=== PATIENT | female | born 1970 | race Caucasian/White ===

== ENCOUNTER 2023-01-24 09:00 | Outpatient (OUT) | payer MEDICARE, SELFPAY ==
[2023-01-24 10:35] LABS: Anion Gap 8.1; BUN Creatinine Ratio 22.9; Calcium 9.1 mg/dL (8.5-10.1); Carbon Dioxide 29.8 mmol/L (21.0-32.0); Chloride 105 mmol/L (98-107); Estimated GFR (African America >60 (>=60); Estimated GFR (Non-African Ame >60 (>=60); Glucose 145 mg/dL (74-106); Potassium 3.9 mmol/L (3.5-5.1); Sodium 139 mmol/L (136-145)
== END 2023-01-24 09:01 | disposition home or self-care (01) ==
LOC: PST 09:08
PROVIDERS: Visit Provider Obstetrics & Gynecology
DX: Z01.812 Encounter for preprocedural laboratory examination (principal); N95.0 Postmenopausal bleeding; R10.2 Pelvic and perineal pain; R93.89 Abnormal findings on diagnostic imaging of other specified body structures
CPT/HCPCS: 36415; 80048

== ENCOUNTER 2023-02-02 07:02 | Day surgery (SDC) | payer MEDICARE, SELFPAY ==
[2023-01-24 11:48] VITALS: BP 115/65; PULSE 50; RESP 16; TEMP 36.3; O2SAT 93; BMI 46.2
[2023-02-02] VITALS (11 sets, daily range): BP systolic 118–152; BP diastolic 72–92; PULSE 53–67; RESP 14–24; TEMP 36.1–36.7; O2SAT 92–96; BMI 46.7
[2023-02-02 07:27] LABS: Basophils Absolute Auto 0.1 10^3/uL (0.0-0.1); Basophils Percent Auto 1.1 % (0.2-2.0); Eosinophils Absolute Auto 0.3 10^3/uL (0.0-0.7); Eosinophils Percent Auto 2.9 % (0.9-7.0); Immature Granulocytes Abs Auto 0.03 10^3/uL (0.00-0.03); Immature Granulocytes Pct Auto 0.3 % (0.0-0.5); Lymphocytes Absolute Auto 3.3 10^3/uL (1.2-3.8); Lymphocytes Percent Auto 36.3 % (20.5-60.0); Mean Corpuscular HGB Conc 34.1 g/dL (29.9-35.2); Mean Corpuscular Hemoglobin 32.8 pg (26.7-34.0); Mean Corpuscular Volume 96.3 fL (81.0-99.0); Mean Platelet Volume 9.8 fL (9.5-13.5); Monocytes Absolute Auto 0.8 10^3/uL (0.3-0.8); Monocytes Percent Auto 8.8 % (1.7-12.0); Neutrophils Absolute Auto 4.6 10^3/uL (1.4-6.5); Neutrophils Percent Auto 50.6 % (43.0-75.0); Platelet Count 279 10^3/uL (150-450); Red Blood Count 4.57 10^6/uL (4.20-5.40); Red Cell Distribution Width 12.6 % (11.0-15.0); White Blood Count 9.2 10^3/uL (4.0-11.0)
[2023-02-02] MEDS: LACTATED RINGER'S SOLUTION 1,000 ML 50 ML IV (07:36)
--- NOTE | 2023-02-02 09:10 | PM.ONB ---
Brief Operative Note Date of procedure: 02/02/23 Pre-op diagnosis: thickened endometrium Post-op diagnosis: other (endometrial polyp) Procedure: NAME OF PROCEDURE: [ D&c hysteroscopy with myosure with polypectomy] PROCEDURE: The patient was taken back to the Operating Room where she was prepped and draped in normal sterile fashion after being placed under general anesthesia without difficulty. She was also placed in the dorsal lithotomy position. A weighted speculum was placed in the patient?s vagina. The anterior lip of the cervix was identified and grasped with a single tooth tenaculum. The patient?s uterus was then sounded roughly to [? 8] cm. The patient was then gently dilated using Hegar dilators. The hysteroscope was passed through the patient?s cervix into the uterus. Both ostia were identified. fluffy appearing endometrium. No gross evidence of malignancy, no gross evidence of polyps or fibroids. The MyoSure was then placed through the scope into the uterus, endometrial sampling in all quadrants was then performed. the myosure apparatus was removed along with the hysteroscope from the patient's uterus. removal of polyp using myosure was performed. At that point, gentle curettage was performed until a gritty texture was noted. The endometrial curettings were sent out to pathology. The single tooth tenaculum was then removed from the patient's anterior lip of the cervix where excellent hemostasis was noted. All instruments were removed from the patient?s vagina. The patient tolerated the procedure well. Sponge, lap and needle counts were correct times two. The patient was taken to the Recovery Room in stable condition.Room in stable condition. Anesthesia: GETA Surgeon: Alex Milian Estimated blood loss (mL): 5 Pathology: other (endometrial currettings and polypectomy) Condition: stable Disposition: PACU
[2023-02-02] MEDS: LACTATED RINGER'S SOLUTION 1,000 ML 150 ML IV (09:37)
== END 2023-02-02 10:55 ==
PROVIDERS: Visit Provider Obstetrics & Gynecology
PROC: (CPT 58558; principal; 2023-02-02 08:15)
DX: R93.89 Abnormal findings on diagnostic imaging of other specified body structures (principal); N93.9 Abnormal uterine and vaginal bleeding, unspecified; Z87.891 Personal history of nicotine dependence; Z68.42 Body mass index [BMI] 45.0-49.9, adult; R10.2 Pelvic and perineal pain; N95.0 Postmenopausal bleeding; F41.9 Anxiety disorder, unspecified; E66.9 Obesity, unspecified; F32.A Depression, unspecified; E78.5 Hyperlipidemia, unspecified; R06.09 Other forms of dyspnea; G47.33 Obstructive sleep apnea (adult) (pediatric); H54.8 Legal blindness, as defined in USA
CPT/HCPCS: 58558; 36415; 85025; 88305; J2704